=== PATIENT | female | born 1940 | race Caucasian/White ===

== ENCOUNTER 2020-08-17 14:14 | Inpatient (IN) ==
[2020-08-17] MEDS ORDERED: 0.9 % Sodium Chloride 1,000 ML IVC ONE (14:53)
[2020-08-17 15:19] LABS: Basophils # 0.1 K/mcL (0.0-0.2); Basophils % 0.9 %; Eosinophils # 0.1 K/mcL (0.0-0.6); Eosinophils % 1.3 %; Hemoglobin 10.1 g/dL (11.5-15.4); Immature Granulocytes % 0.6 % (0-4); Lymphocytes # 0.4 K/mcL (0.6-4.6); Lymphocytes % 4.8 %; Mean Corpuscular HGB Conc 31.6 g/dL (31.6-35.5); Mean Corpuscular Volume 107.7 fL (83.0-100.0); Mean Platelet Volume 10.6 fL (9.4-12.4); Monocytes # 0.4 K/mcL (0.0-1.3); Monocytes % 5.6 %; Neutrophils # 6.7 K/mcL (1.6-8.9); Platelet Count 209 K/mcL (140-400); Red Blood Count 2.97 M/mcL (3.82-4.97); Red Cell Distribution Width 15.3 % (11.5-14.5); Segmented Neutrophils % 86.8 %; White Blood Count 7.7 K/mcL (4.3-11.1)
[2020-08-17 15:34] LABS: Bilirubin,Urine Negative (Negative); Blood,Urine Negative (Negative); Clarity,Urine Clear (Clear); Color,Urine Yellow (Yellow); Glucose,Urine (UA) Normal (Normal); Ketones,Urine Negative (Negative); Leukocyte Esterase,Urine Negative (Negative); Nitrite,Urine Negative (Negative); Protein,Urine 100 mg/dL (Neg-Trace); Urobilinogen,Urine Normal (Normal)
[2020-08-17 15:39] LABS: Troponin I < 0.03 ng/mL (< 0.04)
[2020-08-17 15:40] LABS: Alanine Aminotransferase 8 Units/L (7-52); Albumin 3.5 g/dL (3.5-5.7); Albumin/Globulin Ratio 1.5 (1.1-2.2); Alkaline Phosphatase 85 Units/L (34-104); Aspartate Amino Transferase 13 Units/L (13-39); BUN/Creatinine Ratio 15 (6-26); Bilirubin,Total 0.5 mg/dL (0.3-1.0); Blood Urea Nitrogen 19 mg/dL (8-23); Calcium 9.2 mg/dL (8.6-10.3); Carbon Dioxide 27 mEq/L (23-29); Chloride 105 mEq/L (98-107); Globulin 2.3 g/dL (2.4-3.5); Glucose 117 mg/dL (70-105); Magnesium 2.2 mg/dL (1.6-2.6); Osmolality,Calculated 289 (280-300); Potassium 4.2 mEq/L (3.5-5.1); Sodium 138 mEq/L (136-145); Total Protein 5.8 g/dL (6.4-8.9); eGFR For African Americans 50 (> 60); eGFR For Non-African Americans 41 (> 60)
[2020-08-17 15:41] LABS: Squamous Epithelial Cell,Urine Few per hpf (None-Few); WBC,Urine 0-3 per hpf (0-3)
[2020-08-17] MEDS ORDERED: Ipratropium/Albuterol Neb 3 ML IH PRN (18:11)
[2020-08-17] MEDS ORDERED: levoFLOXacin 500 MG/100 ML 500 MG/100 ML BAG IVPB ONE (18:11)
[2020-08-17] MEDS ORDERED: Naloxone 0.4 MG/ML INJ IVP PRN (18:11)
[2020-08-17] MEDS ORDERED: hydroCHLOROthiazide 25 MG TABLET PO ONE (18:30)
[2020-08-17] MEDS: *HR* Enoxaparin 30 MG/0.3 ML SYRINGE SQ SCH (21:18)
[2020-08-17] MEDS: Gabapentin 300 MG CAPSULE PO SCH (21:19)
[2020-08-17] MEDS: *HR* OxyCODONE/APAP 5/325 TABLET PO PRN (23:06)
[2020-08-18] MEDS: *HR* Enoxaparin 30 MG/0.3 ML SYRINGE SQ SCH ×2 (05:43→17:50)
[2020-08-18] MEDS: *HR* OxyCODONE/APAP 5/325 TABLET PO PRN ×2 (05:46→20:41)
[2020-08-18 05:48] LABS: Hematocrit 30.5 % (35.3-44.9); Hemoglobin 9.6 g/dL (11.5-15.4); Mean Corpuscular HGB Conc 31.5 g/dL (31.6-35.5); Mean Corpuscular Hemoglobin 33.7 pg (28.0-33.3); Mean Platelet Volume 10.6 fL (9.4-12.4); Platelet Count 197 K/mcL (140-400); Red Blood Count 2.85 M/mcL (3.82-4.97); Red Cell Distribution Width 15.2 % (11.5-14.5); White Blood Count 6.5 K/mcL (4.3-11.1)
[2020-08-18 06:07] LABS: BUN/Creatinine Ratio 15 (6-26); Blood Urea Nitrogen 16 mg/dL (8-23); Calcium 8.6 mg/dL (8.6-10.3); Carbon Dioxide 27 mEq/L (23-29); Chloride 108 mEq/L (98-107); Glucose 87 mg/dL (70-105); Osmolality,Calculated 293 (280-300); Potassium 3.8 mEq/L (3.5-5.1); Sodium 141 mEq/L (136-145); eGFR For African Americans > 60 (> 60); eGFR For Non-African Americans 50 (> 60)
[2020-08-18] MEDS ORDERED: levoFLOXacin 500 MG/100 ML 500 MG/100 ML BAG IVPB SCH (09:00)
[2020-08-18] MEDS ORDERED: hydroCHLOROthiazide 25 MG TABLET PO SCH ×2 (09:00)
[2020-08-18] MEDS: amLODIPine 5 MG TABLET PO SCH (09:36)
[2020-08-18] MEDS: levoFLOXacin 500 MG/100 ML 500 MG/100 ML BAG IVPB SCH (09:36)
[2020-08-18] MEDS: Aspirin Enteric Coated 81 MG Tablet PO SCH (09:36)
[2020-08-18] MEDS: Gabapentin 300 MG CAPSULE PO SCH ×2 (09:36→20:41)
[2020-08-18] MEDS: Patient Taking Own Medication 1 EACH PO SCH (09:37)
[2020-08-18] MEDS ORDERED: hydroCHLOROthiazide 25 MG TABLET PO ONE (18:30)
[2020-08-19] MEDS: *HR* Enoxaparin 30 MG/0.3 ML SYRINGE SQ SCH (03:59)
[2020-08-19] MEDS: Gabapentin 300 MG CAPSULE PO SCH ×2 (09:38→21:54)
[2020-08-19] MEDS: levoFLOXacin 500 MG/100 ML 500 MG/100 ML BAG IVPB SCH (09:38)
[2020-08-19] MEDS: amLODIPine 5 MG TABLET PO SCH (09:38)
[2020-08-19] MEDS: Aspirin Enteric Coated 81 MG Tablet PO SCH (09:38)
[2020-08-19] MEDS: Patient Taking Own Medication 1 EACH PO SCH (09:41)
[2020-08-19] MEDS: *HR* OxyCODONE/APAP 5/325 TABLET PO PRN (15:25)
[2020-08-20] MEDS ORDERED: *HR* Enoxaparin 30 MG/0.3 ML SYRINGE SQ SCH (06:00)
[2020-08-20] MEDS: levoFLOXacin 500 MG/100 ML 500 MG/100 ML BAG IVPB SCH (09:21)
[2020-08-20] MEDS: Gabapentin 300 MG CAPSULE PO SCH ×2 (09:22→20:46)
[2020-08-20] MEDS: Aspirin Enteric Coated 81 MG Tablet PO SCH (09:22)
[2020-08-20] MEDS: amLODIPine 5 MG TABLET PO SCH (09:22)
[2020-08-20] MEDS: Leflunomide [Arava] 20 MG Tablet PO SCH (09:22)
[2020-08-20] MEDS: hydrALAZINE 10 MG TABLET PO PRN (18:00)
[2020-08-20] MEDS: *HR* OxyCODONE/APAP 5/325 TABLET PO PRN (20:46)
[2020-08-21] MEDS: hydrALAZINE 10 MG TABLET PO PRN ×2 (00:10→06:04)
[2020-08-21] MEDS ORDERED: *HR* Enoxaparin 40 MG/0.4 ML SYRINGE SQ SCH (06:00)
[2020-08-21] MEDS ORDERED: lisinopriL 10 MG TABLET PO SCH (09:00)
[2020-08-21] MEDS ORDERED: levoFLOXacin 500 MG TABLET PO SCH (09:00)
[2020-08-21] MEDS: Gabapentin 300 MG CAPSULE PO SCH (09:35)
[2020-08-21] MEDS: amLODIPine 5 MG TABLET PO SCH (09:35)
[2020-08-21] MEDS: Aspirin Enteric Coated 81 MG Tablet PO SCH (09:35)
[2020-08-21] MEDS: Leflunomide [Arava] 20 MG Tablet PO SCH (09:36)
[2020-08-21 11:26] VITALS: BP 164/64
== END 2020-08-21 15:29 | disposition other institution (70) | DRG 193 ==
LOC: INPGRE 14:14 → EMEROOGRE 14:14 → INPGRE 18:40
PROVIDERS: ADMIT Family Medicine; ATTEND Family Medicine

== ENCOUNTER 2020-08-21 15:04 | Inpatient (IN) ==
[2020-08-21] MEDS ORDERED: *HR* OxyCODONE/APAP 5/325 TABLET PO PRN (16:14)
[2020-08-21] MEDS ORDERED: hydrALAZINE 10 MG TABLET PO PRN (16:17)
[2020-08-21] MEDS ORDERED: Ipratropium/Albuterol Neb 3 ML IH PRN (16:18)
[2020-08-21] MEDS: Gabapentin 300 MG CAPSULE PO SCH (20:14)
[2020-08-22] MEDS: *HR* OxyCODONE/APAP 5/325 TABLET PO PRN (00:21)
[2020-08-22] MEDS ORDERED: polyethylene glycoL 3350 17 GM POWD.PACK PO PRN (01:33)
[2020-08-22] MEDS: *HR* Enoxaparin 40 MG/0.4 ML SYRINGE SQ SCH (06:08)
[2020-08-22] MEDS: amLODIPine 5 MG TABLET PO SCH (08:53)
[2020-08-22] MEDS: Gabapentin 300 MG CAPSULE PO SCH ×2 (08:53→20:05)
[2020-08-22] MEDS: Aspirin Enteric Coated 81 MG Tablet PO SCH (08:53)
[2020-08-22] MEDS: levoFLOXacin 500 MG TABLET PO SCH (08:53)
[2020-08-22] MEDS ORDERED: lisinopriL 10 MG TABLET PO SCH (09:00)
[2020-08-22] MEDS: hydrALAZINE 25 MG TABLET PO SCH ×2 (10:06→16:48)
[2020-08-23] MEDS: hydrALAZINE 25 MG TABLET PO SCH ×3 (00:39→16:52)
[2020-08-23 04:25] LABS: Hematocrit 28.4 % (35.3-44.9); Hemoglobin 8.9 g/dL (11.5-15.4); Mean Corpuscular HGB Conc 31.3 g/dL (31.6-35.5); Mean Corpuscular Hemoglobin 33.7 pg (28.0-33.3); Mean Corpuscular Volume 107.6 fL (83.0-100.0); Mean Platelet Volume 10.1 fL (9.4-12.4); Platelet Count 193 K/mcL (140-400); Red Blood Count 2.64 M/mcL (3.82-4.97); Red Cell Distribution Width 15.1 % (11.5-14.5); White Blood Count 5.3 K/mcL (4.3-11.1)
[2020-08-23 04:40] LABS: Alanine Aminotransferase 6 Units/L (7-52); Albumin/Globulin Ratio 1.5 (1.1-2.2); Alkaline Phosphatase 78 Units/L (34-104); Aspartate Amino Transferase 10 Units/L (13-39); BUN/Creatinine Ratio 12 (6-26); Bilirubin,Total 0.6 mg/dL (0.3-1.0); Blood Urea Nitrogen 12 mg/dL (8-23); Calcium 8.5 mg/dL (8.6-10.3); Carbon Dioxide 24 mEq/L (23-29); Chloride 109 mEq/L (98-107); Glucose 86 mg/dL (70-105); Magnesium 2.1 mg/dL (1.6-2.6); Osmolality,Calculated 287 (280-300); Sodium 139 mEq/L (136-145); eGFR For African Americans > 60 (> 60); eGFR For Non-African Americans 55 (> 60)
[2020-08-23] MEDS: *HR* Enoxaparin 40 MG/0.4 ML SYRINGE SQ SCH (06:30)
[2020-08-23] MEDS: amLODIPine 5 MG TABLET PO SCH (09:42)
[2020-08-23] MEDS: Aspirin Enteric Coated 81 MG Tablet PO SCH (09:42)
[2020-08-23] MEDS: levoFLOXacin 500 MG TABLET PO SCH (09:42)
[2020-08-23] MEDS: Gabapentin 300 MG CAPSULE PO SCH ×2 (09:42→20:14)
[2020-08-24] MEDS: hydrALAZINE 25 MG TABLET PO SCH ×3 (01:59→14:56)
[2020-08-24] MEDS: *HR* OxyCODONE/APAP 5/325 TABLET PO PRN ×2 (01:59→21:38)
[2020-08-24] MEDS: *HR* Enoxaparin 40 MG/0.4 ML SYRINGE SQ SCH (06:40)
[2020-08-24] MEDS: Gabapentin 300 MG CAPSULE PO SCH ×2 (09:14→21:37)
[2020-08-24] MEDS: levoFLOXacin 500 MG TABLET PO SCH (09:14)
[2020-08-24] MEDS: Aspirin Enteric Coated 81 MG Tablet PO SCH (09:14)
[2020-08-24] MEDS: amLODIPine 5 MG TABLET PO SCH (09:15)
[2020-08-25] MEDS: hydrALAZINE 25 MG TABLET PO SCH ×3 (00:17→15:55)
[2020-08-25] MEDS: *HR* Enoxaparin 40 MG/0.4 ML SYRINGE SQ SCH (05:25)
[2020-08-25] MEDS: amLODIPine 5 MG TABLET PO SCH (09:41)
[2020-08-25] MEDS: levoFLOXacin 500 MG TABLET PO SCH (09:41)
[2020-08-25] MEDS: Gabapentin 300 MG CAPSULE PO SCH ×2 (09:42→21:14)
[2020-08-25] MEDS: Aspirin Enteric Coated 81 MG Tablet PO SCH (09:42)
[2020-08-25] MEDS: *HR* OxyCODONE/APAP 5/325 TABLET PO PRN (21:14)
[2020-08-26] MEDS: hydrALAZINE 25 MG TABLET PO SCH ×3 (00:46→15:03)
[2020-08-26] MEDS: *HR* Enoxaparin 40 MG/0.4 ML SYRINGE SQ SCH (05:26)
[2020-08-26] MEDS: Aspirin Enteric Coated 81 MG Tablet PO SCH (07:55)
[2020-08-26] MEDS: Gabapentin 300 MG CAPSULE PO SCH ×2 (07:55→20:41)
[2020-08-26] MEDS: amLODIPine 5 MG TABLET PO SCH (07:55)
[2020-08-26] MEDS: *HR* OxyCODONE/APAP 5/325 TABLET PO PRN (20:41)
[2020-08-27] MEDS: hydrALAZINE 25 MG TABLET PO SCH ×3 (00:06→17:16)
[2020-08-27] MEDS: *HR* Enoxaparin 40 MG/0.4 ML SYRINGE SQ SCH (05:46)
[2020-08-27] MEDS: amLODIPine 5 MG TABLET PO SCH (08:43)
[2020-08-27] MEDS: Aspirin Enteric Coated 81 MG Tablet PO SCH (08:43)
[2020-08-27] MEDS: Gabapentin 300 MG CAPSULE PO SCH ×2 (08:44→20:23)
[2020-08-27] MEDS ORDERED: MOM Conc 10 ML UD.LIQ PO PRN (19:24)
[2020-08-28] MEDS: hydrALAZINE 25 MG TABLET PO SCH ×3 (00:34→16:32)
[2020-08-28 05:02] LABS: Basophils # 0.1 K/mcL (0.0-0.2); Basophils % 1.5 %; Eosinophils # 0.3 K/mcL (0.0-0.6); Eosinophils % 6.3 %; Hematocrit 27.8 % (35.3-44.9); Hemoglobin 8.6 g/dL (11.5-15.4); Immature Granulocytes % 0.4 % (0-4); Lymphocytes # 0.5 K/mcL (0.6-4.6); Lymphocytes % 11.7 %; Mean Corpuscular HGB Conc 30.9 g/dL (31.6-35.5); Mean Corpuscular Hemoglobin 33.3 pg (28.0-33.3); Mean Corpuscular Volume 107.8 fL (83.0-100.0); Mean Platelet Volume 10.2 fL (9.4-12.4); Monocytes # 0.5 K/mcL (0.0-1.3); Monocytes % 10.2 %; Neutrophils # 3.2 K/mcL (1.6-8.9); Platelet Count 231 K/mcL (140-400); Red Blood Count 2.58 M/mcL (3.82-4.97); Red Cell Distribution Width 15.4 % (11.5-14.5); Segmented Neutrophils % 69.9 %; White Blood Count 4.6 K/mcL (4.3-11.1)
[2020-08-28 05:13] LABS: BUN/Creatinine Ratio 15 (6-26); Blood Urea Nitrogen 14 mg/dL (8-23); Calcium 8.9 mg/dL (8.6-10.3); Carbon Dioxide 22 mEq/L (23-29); Chloride 111 mEq/L (98-107); Glucose 81 mg/dL (70-105); Osmolality,Calculated 292 (280-300); Potassium 3.5 mEq/L (3.5-5.1); Sodium 141 mEq/L (136-145); eGFR For African Americans > 60 (> 60); eGFR For Non-African Americans 57 (> 60)
[2020-08-28] MEDS: *HR* Enoxaparin 40 MG/0.4 ML SYRINGE SQ SCH (05:29)
[2020-08-28] MEDS: Gabapentin 300 MG CAPSULE PO SCH ×2 (07:27→20:31)
[2020-08-28] MEDS: Aspirin Enteric Coated 81 MG Tablet PO SCH (07:27)
[2020-08-28] MEDS: amLODIPine 5 MG TABLET PO SCH (07:27)
[2020-08-29] MEDS: hydrALAZINE 25 MG TABLET PO SCH ×4 (00:22→23:58)
[2020-08-29] MEDS: *HR* Enoxaparin 40 MG/0.4 ML SYRINGE SQ SCH (04:41)
[2020-08-29] MEDS: amLODIPine 5 MG TABLET PO SCH (08:20)
[2020-08-29] MEDS: Aspirin Enteric Coated 81 MG Tablet PO SCH (08:21)
[2020-08-29] MEDS: Gabapentin 300 MG CAPSULE PO SCH ×2 (08:21→21:48)
[2020-08-29] MEDS: Cyanocobalamin (B-12) 1,000 MCG/ML VIAL SQ SCH (17:56)
[2020-08-30] MEDS: *HR* OxyCODONE/APAP 5/325 TABLET PO PRN (00:54)
[2020-08-30] MEDS: *HR* Enoxaparin 40 MG/0.4 ML SYRINGE SQ SCH (06:50)
[2020-08-30 08:44] LABS: Folate 7.4 ng/mL (3.0-16.0)
[2020-08-30 08:56] LABS: Vitamin B12 > 1500 pg/mL (250-1100)
[2020-08-30] MEDS: amLODIPine 5 MG TABLET PO SCH (09:49)
[2020-08-30] MEDS: Gabapentin 300 MG CAPSULE PO SCH (09:49)
[2020-08-30] MEDS: Aspirin Enteric Coated 81 MG Tablet PO SCH (09:50)
[2020-08-30] MEDS: hydrALAZINE 25 MG TABLET PO SCH (09:50)
[2020-08-30] MEDS: Cyanocobalamin (B-12) 1,000 MCG/ML VIAL SQ SCH (09:51)
[2020-08-30 10:16] VITALS: BP 149/71
== END 2020-08-30 11:56 | disposition home or self-care (01) | DRG 945 ==
LOC: INPGRE 15:39
PROVIDERS: ADMIT Family Medicine; ATTEND Family Medicine

== ENCOUNTER 2021-03-14 17:29 | Inpatient (IN) ==
[2021-03-14 18:23] LABS: Basophils % 0.8 %; Eosinophils # 0.2 K/mcL (0.0-0.6); Eosinophils % 3.6 %; Hematocrit 32.4 % (35.3-44.9); Hemoglobin 10.1 g/dL (11.5-15.4); Immature Granulocytes % 0.8 % (0-4); Lymphocytes # 0.5 K/mcL (0.6-4.6); Lymphocytes % 8.9 %; Mean Corpuscular HGB Conc 31.2 g/dL (31.6-35.5); Mean Corpuscular Hemoglobin 33.6 pg (28.0-33.3); Mean Corpuscular Volume 107.6 fL (83.0-100.0); Mean Platelet Volume 9.4 fL (9.4-12.4); Monocytes # 0.5 K/mcL (0.0-1.3); Monocytes % 9.1 %; Neutrophils # 4.1 K/mcL (1.6-8.9); Platelet Count 228 K/mcL (140-400); Red Blood Count 3.01 M/mcL (3.82-4.97); Red Cell Distribution Width 15.8 % (11.5-14.5); Segmented Neutrophils % 76.8 %; White Blood Count 5.3 K/mcL (4.3-11.1)
[2021-03-14] MEDS ORDERED: hydrALAZINE 25 MG TABLET PO ONE (18:28)
[2021-03-14 18:43] LABS: Calcium 8.7 mg/dL (8.6-10.3); Potassium 3.8 mEq/L (3.5-5.1)
[2021-03-14 18:51] LABS: Bilirubin,Urine Negative (Negative); Blood,Urine Negative (Negative); Clarity,Urine Clear (Clear); Color,Urine Yellow (Yellow); Glucose,Urine (UA) Normal (Normal); Ketones,Urine Negative (Negative); Leukocyte Esterase,Urine Trace (Negative); Nitrite,Urine Negative (Negative); Protein,Urine 100 mg/dL (Neg-Trace); Urobilinogen,Urine Normal (Normal)
[2021-03-14 19:27] LABS: Bacteria,Urine Few per hpf (None-Few); RBC,Urine 0-3 per hpf (0-3); Squamous Epithelial Cell,Urine Few per hpf (None-Few); Transitional Epi Cells,Urine Few per hpf (None-Few)
[2021-03-14] MEDS ORDERED: hydroCHLOROthiazide 25 MG TABLET PO SCH (20:00)
[2021-03-14] MEDS ORDERED: Ondansetron 4 MG/2 ML VIAL IVP PRN (20:23)
[2021-03-14] MEDS ORDERED: Naloxone 0.4 MG/ML INJ IVP PRN (20:23)
[2021-03-14] MEDS ORDERED: Perflutren Lipid Microsphere 1.3 ML in 0.9 % Sodium Chloride 8.7 ML IVP PRN (20:36)
[2021-03-14] MEDS: 0.9 % Sodium Chloride 1,000 ML IVC SCH (23:45)
[2021-03-14] MEDS: amLODIPine 5 MG TABLET PO SCH (23:46)
[2021-03-14] MEDS: BISOPROLOL FUMARATE 5 MG PO SCH (23:46)
[2021-03-14] MEDS: Acetaminophen 325 MG TABLET PO PRN (23:46)
[2021-03-14] MEDS: CRANBERRY 400 MG PO SCH (23:47)
[2021-03-15] MEDS: hydrALAZINE 25 MG TABLET PO SCH ×4 (01:06→19:58)
[2021-03-15] MEDS: *HR* Enoxaparin 40 MG/0.4 ML SYRINGE SQ SCH (05:56)
[2021-03-15 06:15] LABS: Hematocrit 30.2 % (35.3-44.9); Hemoglobin 9.5 g/dL (11.5-15.4); Mean Corpuscular HGB Conc 31.5 g/dL (31.6-35.5); Mean Corpuscular Hemoglobin 33.7 pg (28.0-33.3); Mean Corpuscular Volume 107.1 fL (83.0-100.0); Mean Platelet Volume 9.8 fL (9.4-12.4); Platelet Count 219 K/mcL (140-400); Red Blood Count 2.82 M/mcL (3.82-4.97); Red Cell Distribution Width 15.6 % (11.5-14.5); White Blood Count 5.1 K/mcL (4.3-11.1)
[2021-03-15 06:35] LABS: Calcium 8.6 mg/dL (8.6-10.3); Chol/HDL Ratio 3.2 (0-4.9); Potassium 3.6 mEq/L (3.5-5.1)
[2021-03-15] MEDS: CRANBERRY 400 MG PO SCH ×2 (08:02→19:54)
[2021-03-15] MEDS: hydroCHLOROthiazide 25 MG TABLET PO SCH (08:31)
[2021-03-15] MEDS: Folic Acid 1 MG TABLET PO SCH (08:32)
[2021-03-15] MEDS: Aspirin Enteric Coated 81 MG Tablet PO SCH (08:33)
[2021-03-15] MEDS: Gabapentin 300 MG CAPSULE PO SCH (08:33)
[2021-03-15] MEDS: Cyanocobalamin (B-12) 1,000 MCG TABLET PO SCH (08:33)
[2021-03-15] MEDS: amLODIPine 5 MG TABLET PO SCH (08:34)
[2021-03-15] MEDS: predniSONE 5 MG TABLET PO SCH (08:34)
[2021-03-15] MEDS: 0.9 % Sodium Chloride 1,000 ML IVC SCH (08:40)
[2021-03-15] MEDS: (Leflunomide [Arava] 20 MG Tablet) PO SCH (08:55)
[2021-03-15] MEDS: BISOPROLOL FUMARATE 5 MG PO SCH (19:54)
[2021-03-15] MEDS: Acetaminophen 325 MG TABLET PO PRN (22:39)
[2021-03-16] MEDS: *HR* Enoxaparin 40 MG/0.4 ML SYRINGE SQ SCH (04:37)
[2021-03-16 06:19] LABS: Hematocrit 30.6 % (35.3-44.9); Hemoglobin 9.6 g/dL (11.5-15.4); Mean Corpuscular HGB Conc 31.4 g/dL (31.6-35.5); Mean Corpuscular Hemoglobin 33.6 pg (28.0-33.3); Mean Platelet Volume 9.9 fL (9.4-12.4); Platelet Count 231 K/mcL (140-400); Red Blood Count 2.86 M/mcL (3.82-4.97); Red Cell Distribution Width 15.6 % (11.5-14.5); White Blood Count 4.9 K/mcL (4.3-11.1)
[2021-03-16 06:53] LABS: BUN/Creatinine Ratio 16 (6-26); Blood Urea Nitrogen 16 mg/dL (8-23); Calcium 8.7 mg/dL (8.6-10.3); Carbon Dioxide 27 mEq/L (23-29); Chloride 103 mEq/L (98-107); Glucose 100 mg/dL (70-105); Osmolality,Calculated 285 (280-300); Potassium 3.2 mEq/L (3.5-5.1); Sodium 137 mEq/L (136-145); eGFR For African Americans > 60 (> 60); eGFR For Non-African Americans 52 (> 60)
[2021-03-16] MEDS: Gabapentin 300 MG CAPSULE PO SCH (07:56)
[2021-03-16] MEDS: hydrALAZINE 25 MG TABLET PO SCH ×3 (07:57→20:16)
[2021-03-16] MEDS: Folic Acid 1 MG TABLET PO SCH (07:57)
[2021-03-16] MEDS: amLODIPine 5 MG TABLET PO SCH (07:57)
[2021-03-16] MEDS: Aspirin Enteric Coated 81 MG Tablet PO SCH (07:57)
[2021-03-16] MEDS: Cyanocobalamin (B-12) 1,000 MCG TABLET PO SCH (07:57)
[2021-03-16] MEDS: hydroCHLOROthiazide 25 MG TABLET PO SCH (07:58)
[2021-03-16] MEDS: predniSONE 5 MG TABLET PO SCH (07:58)
[2021-03-16] MEDS: CRANBERRY 400 MG PO SCH ×2 (07:59→20:17)
[2021-03-16] MEDS: (Leflunomide [Arava] 20 MG Tablet) PO SCH (07:59)
[2021-03-16] MEDS: Acetaminophen 325 MG TABLET PO PRN (08:19)
[2021-03-16] MEDS: Fluticasone Propionate Nasal 50 MCG/SPRAY BOTTLE NS SCH (15:33)
[2021-03-16] MEDS: *HR* Labetalol 20 MG/4 ML SYRINGE IVP PRN ×2 (17:10→20:15)
[2021-03-16] MEDS: BISOPROLOL FUMARATE 5 MG PO SCH (20:17)
[2021-03-17] MEDS: *HR* Labetalol 20 MG/4 ML SYRINGE IVP PRN ×3 (03:22→04:33)
[2021-03-17] MEDS: Acetaminophen 325 MG TABLET PO PRN (03:29)
[2021-03-17] MEDS: *HR* Enoxaparin 40 MG/0.4 ML SYRINGE SQ SCH (06:09)
[2021-03-17 07:44] VITALS: RESP 15; TEMP 97.9; O2SAT 95
[2021-03-17] MEDS: Folic Acid 1 MG TABLET PO SCH (08:04)
[2021-03-17] MEDS: amLODIPine 5 MG TABLET PO SCH (08:04)
[2021-03-17] MEDS: predniSONE 5 MG TABLET PO SCH (08:05)
[2021-03-17] MEDS: Gabapentin 300 MG CAPSULE PO SCH (08:05)
[2021-03-17] MEDS: Aspirin Enteric Coated 81 MG Tablet PO SCH (08:05)
[2021-03-17] MEDS: Cyanocobalamin (B-12) 1,000 MCG TABLET PO SCH (08:05)
[2021-03-17] MEDS: hydroCHLOROthiazide 25 MG TABLET PO SCH (08:06)
[2021-03-17] MEDS: Fluticasone Propionate Nasal 50 MCG/SPRAY BOTTLE NS SCH ×2 (08:07→10:20)
[2021-03-17] MEDS: CRANBERRY 400 MG PO SCH (08:07)
[2021-03-17] MEDS: (Leflunomide [Arava] 20 MG Tablet) PO SCH (08:07)
[2021-03-17] MEDS ORDERED: hydrALAZINE 25 MG TABLET PO SCH (09:00)
[2021-03-17 09:19] LABS: Basophils # 0.1 K/mcL (0.0-0.2); Eosinophils # 0.1 K/mcL (0.0-0.6); Eosinophils % 2.6 %; Hematocrit 31.8 % (35.3-44.9); Immature Granulocytes % 0.6 % (0-4); Lymphocytes # 0.4 K/mcL (0.6-4.6); Lymphocytes % 7.5 %; Mean Corpuscular HGB Conc 31.4 g/dL (31.6-35.5); Mean Corpuscular Hemoglobin 33.6 pg (28.0-33.3); Mean Corpuscular Volume 106.7 fL (83.0-100.0); Mean Platelet Volume 9.7 fL (9.4-12.4); Monocytes # 0.4 K/mcL (0.0-1.3); Monocytes % 7.9 %; Platelet Count 235 K/mcL (140-400); Red Blood Count 2.98 M/mcL (3.82-4.97); Red Cell Distribution Width 15.8 % (11.5-14.5); Segmented Neutrophils % 80.4 %
[2021-03-17 09:34] LABS: Alanine Aminotransferase 10 Units/L (7-52); Albumin 3.4 g/dL (3.5-5.7); Albumin/Globulin Ratio 1.4 (1.1-2.2); Alkaline Phosphatase 64 Units/L (34-104); Aspartate Amino Transferase 15 Units/L (13-39); BUN/Creatinine Ratio 13 (6-26); Bilirubin,Total 0.6 mg/dL (0.3-1.0); Blood Urea Nitrogen 14 mg/dL (8-23); Calcium 8.6 mg/dL (8.6-10.3); Carbon Dioxide 26 mEq/L (23-29); Chloride 102 mEq/L (98-107); Globulin 2.5 g/dL (2.4-3.5); Glucose 107 mg/dL (70-105); Osmolality,Calculated 279 (280-300); Potassium 3.5 mEq/L (3.5-5.1); Sodium 134 mEq/L (136-145); Total Protein 5.9 g/dL (6.4-8.9); eGFR For African Americans > 60 (> 60); eGFR For Non-African Americans 50 (> 60)
[2021-03-17 10:16] VITALS: BP 177/71; PULSE 76
== END 2021-03-17 14:37 | disposition other institution (70) ==
LOC: EMEROOGRE 17:29 → INPGRE 21:39
PROVIDERS: ADMIT Family Medicine; ATTEND Family Medicine

== ENCOUNTER 2021-03-15 15:49 | Inpatient (IN) ==
[2021-03-17] MEDS ORDERED: Acetaminophen 325 MG TABLET PO PRN (18:22)
[2021-03-17] MEDS ORDERED: Naloxone 0.4 MG/ML INJ IVP PRN (18:41)
[2021-03-17] MEDS ORDERED: Ondansetron 4 MG/2 ML VIAL IVP PRN (18:42)
[2021-03-17] MEDS: hydrALAZINE 25 MG TABLET PO SCH (20:55)
[2021-03-18] MEDS: *HR* Enoxaparin 40 MG/0.4 ML SYRINGE SQ SCH (06:03)
[2021-03-18] MEDS: Aspirin Enteric Coated 81 MG Tablet PO SCH (10:06)
[2021-03-18] MEDS: Folic Acid 1 MG TABLET PO SCH (10:06)
[2021-03-18] MEDS: amLODIPine 5 MG TABLET PO SCH (10:06)
[2021-03-18] MEDS: Gabapentin 300 MG CAPSULE PO SCH (10:06)
[2021-03-18] MEDS: predniSONE 5 MG TABLET PO SCH (10:07)
[2021-03-18] MEDS: Cyanocobalamin (B-12) 1,000 MCG TABLET PO SCH (10:07)
[2021-03-18] MEDS: hydroCHLOROthiazide 25 MG TABLET PO SCH (10:07)
[2021-03-18] MEDS: cloNIDine HCL 0.1 MG TABLET PO SCH ×3 (10:19→20:17)
[2021-03-18] MEDS: Fluticasone Propionate Nasal 50 MCG/SPRAY BOTTLE NS SCH (10:20)
[2021-03-18] MEDS: hydrALAZINE 25 MG TABLET PO SCH (10:21)
[2021-03-19] MEDS: *HR* Enoxaparin 40 MG/0.4 ML SYRINGE SQ SCH (04:52)
[2021-03-19 05:56] LABS: Eosinophils # 0.2 K/mcL (0.0-0.6); Eosinophils % 4.2 %; Hematocrit 29.5 % (35.3-44.9); Immature Granulocytes % 0.5 % (0-4); Lymphocytes # 0.5 K/mcL (0.6-4.6); Lymphocytes % 13.4 %; Mean Corpuscular HGB Conc 30.5 g/dL (31.6-35.5); Mean Corpuscular Volume 108.1 fL (83.0-100.0); Mean Platelet Volume 9.8 fL (9.4-12.4); Monocytes # 0.4 K/mcL (0.0-1.3); Monocytes % 9.7 %; Neutrophils # 2.9 K/mcL (1.6-8.9); Platelet Count 205 K/mcL (140-400); Red Blood Count 2.73 M/mcL (3.82-4.97); Red Cell Distribution Width 15.4 % (11.5-14.5); Segmented Neutrophils % 71.2 %
[2021-03-19 06:13] LABS: Albumin/Globulin Ratio 1.4 (1.1-2.2); Bilirubin,Total 0.6 mg/dL (0.3-1.0); Calcium 8.2 mg/dL (8.6-10.3); Globulin 2.2 g/dL (2.4-3.5); Potassium 4.3 mEq/L (3.5-5.1); Total Protein 5.2 g/dL (6.4-8.9)
[2021-03-19] MEDS: Gabapentin 300 MG CAPSULE PO SCH (08:48)
[2021-03-19] MEDS: Cyanocobalamin (B-12) 1,000 MCG TABLET PO SCH (08:48)
[2021-03-19] MEDS: hydroCHLOROthiazide 25 MG TABLET PO SCH (08:48)
[2021-03-19] MEDS: Aspirin Enteric Coated 81 MG Tablet PO SCH (08:49)
[2021-03-19] MEDS: predniSONE 5 MG TABLET PO SCH (08:49)
[2021-03-19] MEDS: Folic Acid 1 MG TABLET PO SCH (08:49)
[2021-03-19] MEDS: amLODIPine 5 MG TABLET PO SCH (08:49)
[2021-03-19] MEDS: Fluticasone Propionate Nasal 50 MCG/SPRAY BOTTLE NS SCH (08:50)
[2021-03-19] MEDS ORDERED: cloNIDine HCL 0.1 MG TABLET PO SCH ×2 (09:00→15:00)
[2021-03-19 12:04] VITALS: BP 106/52; PULSE 52; RESP 16; TEMP 97.4; O2SAT 97
== END 2021-03-19 13:15 | disposition home health service (06) ==
LOC: INPGRE 03-17 14:46
PROVIDERS: ADMIT Family Medicine; ATTEND Family Medicine

== ENCOUNTER 2021-07-03 12:30 | Inpatient (IN) ==
[2021-07-03 13:14] LABS: Basophils % 0.4 %; Eosinophils # 0.2 K/mcL (0.0-0.6); Eosinophils % 1.8 %; Hemoglobin 11.3 g/dL (11.5-15.4); Immature Granulocytes % 0.7 % (0-4); Lymphocytes # 0.5 K/mcL (0.6-4.6); Lymphocytes % 5.8 %; Mean Corpuscular HGB Conc 32.3 g/dL (31.6-35.5); Mean Corpuscular Hemoglobin 33.2 pg (28.0-33.3); Mean Corpuscular Volume 102.9 fL (83.0-100.0); Mean Platelet Volume 9.5 fL (9.4-12.4); Monocytes # 0.6 K/mcL (0.0-1.3); Monocytes % 6.7 %; Neutrophils # 7.6 K/mcL (1.6-8.9); Platelet Count 314 K/mcL (140-400); Red Cell Distribution Width 13.8 % (11.5-14.5); Segmented Neutrophils % 84.6 %
[2021-07-03 13:20] LABS: INR 1.1; Prothrombin Time 12.5 Seconds (9.4-12.1)
[2021-07-03 13:49] LABS: Alanine Aminotransferase 12 Units/L (7-52); Albumin 3.6 g/dL (3.5-5.7); Albumin/Globulin Ratio 1.5 (1.1-2.2); Alkaline Phosphatase 70 Units/L (34-104); Aspartate Amino Transferase 18 Units/L (13-39); BUN/Creatinine Ratio 24 (6-26); Bilirubin,Direct 0.1 mg/dL (0.0-0.2); Bilirubin,Indirect 0.3 mg/dL (0.0-1.0); Bilirubin,Total 0.4 mg/dL (0.3-1.0); Blood Urea Nitrogen 67 mg/dL (8-23); Calcium 9.9 mg/dL (8.6-10.3); Carbon Dioxide 23 mEq/L (23-29); Chloride 100 mEq/L (98-107); Globulin 2.4 g/dL (2.4-3.5); Glucose 112 mg/dL (70-105); Osmolality,Calculated 300 (280-300); Potassium 3.8 mEq/L (3.5-5.1); Sodium 135 mEq/L (136-145); Troponin I < 0.03 ng/mL (< 0.04); eGFR For African Americans 20 (> 60); eGFR For Non-African Americans 16 (> 60)
[2021-07-03 14:20] LABS: Bilirubin,Urine Negative (Negative); Blood,Urine Negative (Negative); Clarity,Urine Clear (Clear); Color,Urine Yellow (Yellow); Glucose,Urine (UA) Normal (Normal); Ketones,Urine Negative (Negative); Leukocyte Esterase,Urine Negative (Negative); Nitrite,Urine Negative (Negative); PH,Urine 5.5 pH Units (5.0-8.0); Protein,Urine >=300 mg/dL (Neg-Trace); Specific Gravity,Urine >= 1.030 (1.010-1.025); Urobilinogen,Urine Normal (Normal)
[2021-07-03 14:30] LABS: Bacteria,Urine Few per hpf (None-Few); Budding Yeast,Urine Moderate per hpf (None Seen); Hyaline Casts,Urine Few per lpf (None Seen)
[2021-07-03] MEDS ORDERED: 0.9 % Sodium Chloride 1,000 ML IVC ONE (14:38)
[2021-07-03] MEDS ORDERED: Naloxone 0.4 MG/ML INJ IVP PRN (16:15)
[2021-07-03] MEDS ORDERED: Ondansetron 4 MG/2 ML VIAL IVP PRN (16:15)
[2021-07-03] MEDS ORDERED: 0.9 % Sodium Chloride 1,000 ML IVC SCH (16:30)
[2021-07-03] MEDS: *HR* Heparin 5,000 UNIT/ML VIAL SQ SCH (18:48)
[2021-07-03] MEDS ORDERED: D5% in 0.45% NACL 1,000 ML IVC SCH (19:00)
[2021-07-03] MEDS ORDERED: hydrALAZINE 25 MG TABLET PO PRN (20:11)
[2021-07-03] MEDS ORDERED: Gabapentin 300 MG CAPSULE PO SCH (21:00)
[2021-07-04] MEDS: cloNIDine HCL 0.1 MG TABLET PO SCH ×4 (04:26→21:17)
[2021-07-04] MEDS: amLODIPine 5 MG TABLET PO SCH ×2 (04:26→21:17)
[2021-07-04] MEDS: CRANBERRY FRUIT EXTRACT 250 MG PO SCH ×3 (04:27→21:17)
[2021-07-04] MEDS ORDERED: Acetaminophen 325 MG TABLET PO PRN (06:00)
[2021-07-04] MEDS: *HR* Heparin 5,000 UNIT/ML VIAL SQ SCH ×2 (06:03→17:30)
[2021-07-04 06:53] LABS: Basophils % 0.6 %; Eosinophils # 0.2 K/mcL (0.0-0.6); Eosinophils % 2.7 %; Hemoglobin 10.1 g/dL (11.5-15.4); Immature Granulocytes % 0.4 % (0-4); Lymphocytes # 0.6 K/mcL (0.6-4.6); Lymphocytes % 8.4 %; Mean Corpuscular HGB Conc 32.6 g/dL (31.6-35.5); Mean Corpuscular Hemoglobin 32.4 pg (28.0-33.3); Mean Corpuscular Volume 99.4 fL (83.0-100.0); Mean Platelet Volume 9.6 fL (9.4-12.4); Monocytes # 0.7 K/mcL (0.0-1.3); Monocytes % 10.4 %; Neutrophils # 5.2 K/mcL (1.6-8.9); Platelet Count 286 K/mcL (140-400); Red Blood Count 3.12 M/mcL (3.82-4.97); Red Cell Distribution Width 13.7 % (11.5-14.5); Segmented Neutrophils % 77.5 %; White Blood Count 6.8 K/mcL (4.3-11.1)
[2021-07-04 07:19] LABS: Calcium 8.9 mg/dL (8.6-10.3); Magnesium 2.3 mg/dL (1.6-2.6); Potassium 3.3 mEq/L (3.5-5.1)
[2021-07-04] MEDS: Folic Acid 1 MG TABLET PO SCH (09:50)
[2021-07-04] MEDS: Cholecalciferol (D-3) 1,000 UNIT (25MCG) TABLET PO SCH (09:51)
[2021-07-04] MEDS: Gabapentin 300 MG CAPSULE PO SCH (09:52)
[2021-07-04] MEDS: predniSONE 5 MG TABLET PO SCH (09:53)
[2021-07-04] MEDS: Multivit/Ca/Min/Fe/FA 1 TAB TABLET PO SCH (09:53)
[2021-07-04] MEDS: Loratadine 10 MG TABLET PO SCH (09:54)
[2021-07-04] MEDS ORDERED: Potassium Chloride Elixir 20 MEQ/15 ML UDC PO ONE (11:56)
[2021-07-04] MEDS ORDERED: 0.9 % Sodium Chloride 1,000 ML IVC SCH (12:00)
[2021-07-04] MEDS: Megestrol Acetate 400 MG/10 ML UDC PO SCH (13:12)
[2021-07-05] MEDS: *HR* Heparin 5,000 UNIT/ML VIAL SQ SCH ×2 (05:58→16:44)
[2021-07-05 06:24] LABS: Basophils # 0.1 K/mcL (0.0-0.2); Basophils % 0.8 %; Eosinophils # 0.2 K/mcL (0.0-0.6); Hemoglobin 10.4 g/dL (11.5-15.4); Immature Granulocytes % 0.3 % (0-4); Lymphocytes % 13.3 %; Mean Corpuscular HGB Conc 32.5 g/dL (31.6-35.5); Mean Corpuscular Hemoglobin 32.4 pg (28.0-33.3); Mean Corpuscular Volume 99.7 fL (83.0-100.0); Mean Platelet Volume 9.5 fL (9.4-12.4); Monocytes # 0.8 K/mcL (0.0-1.3); Monocytes % 10.2 %; Neutrophils # 5.6 K/mcL (1.6-8.9); Platelet Count 279 K/mcL (140-400); Red Blood Count 3.21 M/mcL (3.82-4.97); Segmented Neutrophils % 72.4 %; White Blood Count 7.7 K/mcL (4.3-11.1)
[2021-07-05 07:06] LABS: Potassium 3.6 mEq/L (3.5-5.1)
[2021-07-05 08:01] LABS: Calcium 9.1 mg/dL (8.6-10.3)
[2021-07-05] MEDS: Loratadine 10 MG TABLET PO SCH (08:14)
[2021-07-05] MEDS: predniSONE 5 MG TABLET PO SCH (08:15)
[2021-07-05] MEDS: cloNIDine HCL 0.1 MG TABLET PO SCH ×2 (08:15→16:47)
[2021-07-05] MEDS: Cholecalciferol (D-3) 1,000 UNIT (25MCG) TABLET PO SCH (08:15)
[2021-07-05] MEDS: Gabapentin 300 MG CAPSULE PO SCH (08:15)
[2021-07-05] MEDS: Folic Acid 1 MG TABLET PO SCH (08:15)
[2021-07-05] MEDS: Megestrol Acetate 400 MG/10 ML UDC PO SCH (08:15)
[2021-07-05] MEDS: CRANBERRY FRUIT EXTRACT 250 MG PO SCH (08:15)
[2021-07-05] MEDS: Multivit/Ca/Min/Fe/FA 1 TAB TABLET PO SCH (08:15)
[2021-07-05 16:53] VITALS: RESP 15; TEMP 98.5
[2021-07-05 20:23] VITALS: BP 169/78; PULSE 67; O2SAT 95
== END 2021-07-05 20:11 | disposition short-term general hospital (02) | DRG 682 ==
LOC: EMEROOGRE 12:30 → INPGRE 12:30
PROVIDERS: ADMIT Internal Medicine; ATTEND Internal Medicine